=== PATIENT | female | born 1970 | race Two or more races ===

== ENCOUNTER 2019-04-20 11:36 | Emergency (ER) | payer SELFPAY ==
[~2019-04-20] VITALS: Ht 160 cm; Wt 78.0 kg
[2019-04-20 14:50] VITALS: BP 144/87
== END 2019-04-20 16:24 | disposition left against medical advice (07) ==
LOC: ER 11:36
DX: R10.9 Unspecified abdominal pain (principal); Z53.21 Procedure and treatment not carried out due to patient leaving prior to being seen by health care provider